=== PATIENT | male | born 1975 | race Caucasian/White ===

== ENCOUNTER 2021-11-21 07:15 | Emergency (ER) | payer BC ==
[~2021-11-21] VITALS: Ht 177.8 cm; Wt 80.7 kg
[2021-11-21 07:24] VITALS: BP 123/73
--- NOTE | 2021-11-21 07:29 | NUR ---
pt ambulated to bed 08 at this time with even and steady gait. urine cup was given
[2021-11-21] MEDS ORDERED: ONDANSETRON 4 MG ODT PO ONE (07:30)
--- NOTE | 2021-11-21 07:32 | NUR ---
DR HAM AT BEDSIDE EVALUATING PT
[2021-11-21] MEDS ORDERED: KETOROLAC 60 MG/2 ML VIAL IM ONE (07:35)
[2021-11-21] MEDS ORDERED: ONDA8TAB87 PO (07:40)
[2021-11-21] MEDS ORDERED: IBUP-2213 PO (07:40)
--- NOTE | 2021-11-21 07:44 | NUR ---
ASSESSED PATIENT'S PAIN LEVEL, MEDICATED PER ORDERS.
--- NOTE | 2021-11-21 07:46 | NUR ---
46 y/o male bib spouse from home, c/o abd pain with chills and n&v for 2 days. states he is having a cramping sensation and is unable to hold down medication and food. denies anyone sick in household with same symptoms. denies dysuria, hematuria, urinary frequency or retention. lung bases clear, heart sounds even and normal. respirations even and unlabored. pt is a&ox4 b[place]ian speaking, ambulates with even and steady gait. pmh: denies nka med: tylenol 1000mg prior to arrival
[2021-11-21 08:00] VITALS: BP 123/73
--- NOTE | 2021-11-21 08:00 | NUR ---
Patient discharged with v/s stable. Written and verbal after care instructions ABOUT NAUSEA AND VOMITING, ABDOMINAL PAIN given and explained. Patient alert, oriented and verbalized understanding of instructions. Ambulatory with steady gait. All questions addressed prior to discharge. ID band removed. Patient advised to follow up with PMD. Rx of IBUPROFEN AND ZOFRAN given.
--- NOTE | 2021-11-21 08:01 | NUR ---
The patient's care was reviewed and supervised by Kiara Enciso RN.
== END 2021-11-21 08:00 | disposition home or self-care (01) ==
LOC: MED 07:15
DX: R11.2 Nausea with vomiting, unspecified (principal); R10.13 Epigastric pain; R50.9 Fever, unspecified; F17.210 Nicotine dependence, cigarettes, uncomplicated
CPT/HCPCS: 96372; 99283; J1885; Q0162

== ENCOUNTER 2022-06-30 13:53 | Inpatient (IN) | payer BC ==
[~2022-06-30] VITALS: Ht 177.8 cm; Wt 75.7 kg
[~2022-06-30 13:53] MED LIST: IBUP-2213 PO; ONDA8TAB87 PO; SEVOFLURANE 250 ML BTL INH ONE
[2022-06-30 13:57] VITALS: BP 139/87
--- NOTE | 2022-06-30 14:23 | NUR ---
Pt ambulated to bed 09.
[2022-06-30] MEDS ORDERED: ONDANSETRON 4 MG/2 ML VIAL IVP ONE (14:40)
[2022-06-30] MEDS ORDERED: KETOROLAC 30 MG/ML VIAL IVP ONE (14:40)
--- NOTE | 2022-06-30 15:13 | NUR ---
PT C/O LEFT SIDED ABDOMINAL PAIN X3 DAYS.
[2022-06-30 15:47] LABS: BASOPHILS % (AUTO) 0.1 % (0.0-2.0); EOSINOPHILS # (AUTO) 0.1 K/uL (0-0.4); EOSINOPHILS % (AUTO) 0.4 % (0.0-4.0); HEMATOCRIT 43.1 % (36-52); HEMOGLOBIN 14.9 g/dL (12.0-18.0); LYMPHOCYTES # (AUTO) 1.6 K/uL (2.0-11.5); LYMPHOCYTES % (AUTO) 7.5 % (20.5-51.1); MEAN CORPUSCULAR HEMOGLOBIN 32 pg (27-31); MEAN CORPUSCULAR HGB CONC 35 g/dL (33-37); MEAN CORPUSCULAR VOLUME 91.6 fL (80-94); MONOCYTES % (AUTO) 9.6 % (1.7-9.3); NEUTROPHILS # (AUTO) 17.3 K/uL (1.8-7.7); NEUTROPHILS % (AUTO) 82.4 % (42.2-75.2); PLATELET COUNT (AUTO) 168 K/uL (140-450); RED BLOOD CELL COUNT(AUTO) 4.71 MIL/uL (4.20-6.10); RED CELL DISTRIBUTION WIDTH 13.2 % (11.6-13.7)
[2022-06-30 16:04] LABS: ALBUMIN 3.4 g/dL (3.4-5.0); ANION GAP 15.7 (8-16); CARBON DIOXIDE 23.1 mmol/L (21-32); CREATININE 0.8 mg/dL (0.6-1.3); POTASSIUM 3.8 mmol/L (3.5-5.1); TOTAL BILIRUBIN 1.2 mg/dL (0.0-1.0)
[2022-06-30] MEDS ORDERED: MORPHINE SULFATE 2 MG/ML SYR IVP PRN (20:00)
[2022-06-30] MEDS ORDERED: HYDROcodone/APAP 5/325 MG 1 TAB TAB PO PRN (20:00)
[2022-06-30] MEDS ORDERED: ONDANSETRON 4 MG/2 ML VIAL IV PRN (20:00)
[2022-06-30] MEDS: DEXT 5% / NACL 0.45% 1,000 ML IV SCH (20:00)
[2022-06-30] MEDS ORDERED: HYDROmorphone 1 MG/ML AMP IVP PRN (20:00)
[2022-06-30] MEDS ORDERED: MORPHINE SULFATE 4 MG/ML SYR IV PRN (20:00)
--- NOTE | 2022-06-30 20:39 | NUR ---
NO WOUNDS PER BODY CHECK
[2022-06-30] MEDS ORDERED: PIPERACILLIN/TAZOBACTAM 4.5 GM VIAL IV ONE (21:18)
[2022-06-30] MEDS ORDERED: POTASSIUM CHLORIDE 10 MEQ TABER PO PRN (21:20)
[2022-06-30] MEDS ORDERED: HYDROcodone/APAP 7.5/325 MG 1 TAB PO PRN (21:20)
[2022-06-30] MEDS ORDERED: NACL 0.9% 1,000 ML IV SCH (21:20)
[2022-06-30] MEDS ORDERED: DOCUSATE SODIUM 100 MG GELCAP PO PRN (21:20)
[2022-06-30] MEDS ORDERED: ONDANSETRON 4 MG/2 ML VIAL IM/IVP PRN (21:20)
[2022-06-30] MEDS ORDERED: guaiFENesin DM 200/20 MG-10 ML 10 ML UDC PO PRN (21:20)
[2022-06-30] MEDS ORDERED: ZOLPIDEM 5 MG TAB PO PRN (21:20)
[2022-06-30] MEDS ORDERED: ACETAMINOPHEN 325 MG TAB PO PRN (21:20)
[2022-06-30] MEDS: PIPERACILLIN/TAZOBACTAM 4.5 GM in DEXTROSE 5% 100 ML IV SCH (21:40)
[2022-06-30 22:05] LABS: CHOL/HDL RATIO 4.5 (1-4.5); PHOSPHORUS 2.8 mg/dL (2.5-4.9); THYROID STIMULATING HORMONE 1.32 uIU/mL (0.34-3.74)
--- NOTE | 2022-06-30 22:54 | NUR ---
PT MOVED TO BED 6
--- NOTE | 2022-06-30 23:00 | NUR ---
HANDOFF RECIEVED FROM NILDA BERUMEN. ASSUMED CARE AT THIS TIME. PT SEEN WITH EYES CLOSED, VISIBLE CHEST RISE AND FALL NOTED. D51/2NS RUNNING AT 100CC/HR. ALL NEEDS MET AT THIS TIME.
--- NOTE | 2022-07-01 03:03 | NUR ---
PT AMBULATED TO RESTROOM UNASSISTED. URINE SPECIMEN COLLECTED
[2022-07-01] MEDS: MORPHINE SULFATE 2 MG/ML SYR IVP PRN ×2 (03:12→22:35)
--- NOTE | 2022-07-01 03:13 | NUR ---
PT HAS C/O 6/10 SHARP ABDOMINAL PAIN. MORPHINE 2MG IVP ADMINISTERED PER ORDER
[2022-07-01 03:56] LABS: APPEARANCE,URINE CLEAR (CLEAR); BILIRUBIN,URINE 1+ (NEGATIVE); BLOOD, URINE TRACE-I (NEGATIVE); COLOR,URINE YELLOW (YELLOW); LEUKOCYTE ESTERASE ,URINE NEGATIVE (NEGATIVE); NITRITE, URINE POSITIVE (NEGATIVE); UGLUCOSE TRACE (NEGATIVE)
--- NOTE | 2022-07-01 04:00 | NUR ---
PT REPORTS DECREASED PAIN OF 2/10, TOLERABLE FOR PT.
[2022-07-01 04:25] LABS: RBC,URINE 11-20 (MOD) /HPF (0-5)
[2022-07-01 04:27] LABS: BARBITURATE, URINE NEGATIVE ng/ml (NEG <=200); BENZODIAZEPINE, URINE NEGATIVE ng/mL (NEG <=200); CANNABINOID, URINE NEGATIVE ng/mL (NEG <=50); COCAINE, URINE NEGATIVE ng/mL (NEG <=300); OPIATE, URINE POSITIVE ng/mL (NEG <=2000); PHENCYCLIDINE SCREEN,URINE NEGATIVE ng/mL (NEG <=25)
[2022-07-01] MEDS ORDERED: PIPERACILLIN/TAZOBACTAM 4.5 GM VIAL IV ONE (05:07)
[2022-07-01] MEDS: PIPERACILLIN/TAZOBACTAM 4.5 GM in DEXTROSE 5% 100 ML IV SCH ×3 (05:15→21:00)
[2022-07-01] MEDS: DEXT 5% / NACL 0.45% 1,000 ML IV SCH ×2 (06:00→23:15)
--- NOTE | 2022-07-01 07:12 | NUR ---
HANDOFF REPORT GIVEN TO YASSINE FRANZ. TX OF CARE AT THIS TIME.
--- NOTE | 2022-07-01 07:14 | NUR ---
REPORT RECEIVED FROM RACHEL MUNGUIA. ASSUMED CARE AT THIS TIME
--- NOTE | 2022-07-01 07:30 | NUR ---
pt at rest, laying l side recubant. no visible distress. respirations even and unlabored.
[2022-07-01 07:36] LABS: BASOPHILS % (AUTO) 0.2 % (0.0-2.0); EOSINOPHILS # (AUTO) 0.3 K/uL (0-0.4); HEMATOCRIT 41.1 % (36-52); LYMPHOCYTES # (AUTO) 1.8 K/uL (2.0-11.5); LYMPHOCYTES % (AUTO) 11.5 % (20.5-51.1); MEAN CORPUSCULAR HEMOGLOBIN 32 pg (27-31); MEAN CORPUSCULAR HGB CONC 34 g/dL (33-37); MEAN CORPUSCULAR VOLUME 92.5 fL (80-94); MONOCYTES # (AUTO) 1.8 K/uL (0.8-1.0); MONOCYTES % (AUTO) 11.2 % (1.7-9.3); NEUTROPHILS # (AUTO) 11.7 K/uL (1.8-7.7); NEUTROPHILS % (AUTO) 75.1 % (42.2-75.2); PLATELET COUNT (AUTO) 150 K/uL (140-450); RED BLOOD CELL COUNT(AUTO) 4.44 MIL/uL (4.20-6.10); RED CELL DISTRIBUTION WIDTH 13.1 % (11.6-13.7); WHITE BLOOD COUNT (AUTO) 15.6 K/uL (4.8-10.8)
[2022-07-01 07:40] LABS: ALBUMIN 2.8 g/dL (3.4-5.0); CARBON DIOXIDE 23.9 mmol/L (21-32); CREATININE 0.9 mg/dL (0.6-1.3); POTASSIUM 3.9 mmol/L (3.5-5.1); TOTAL BILIRUBIN 2.8 mg/dL (0.0-1.0)
[2022-07-01 08:00] VITALS: BP 118/70
--- NOTE | 2022-07-01 08:08 | NUR ---
Patient will be admitted to care of MD CASTELLON. Admited to [facility]. Will go to room 119A. Belongings list completed. Report to SHANTELLE MUNGUIA.
[2022-07-01] MEDS: PANTOPRAZOLE 40 MG TABEC PO SCH (08:30)
[2022-07-01] MEDS ORDERED: HYDROmorphone 1 MG/ML AMP IVP PRN (10:25)
[2022-07-01] MEDS ORDERED: diphenhydrAMINE 50 MG/ML VIAL IVP PRN (10:25)
[2022-07-01] MEDS ORDERED: MEPERIDINE 25 MG/ML SYR IVP PRN (10:25)
[2022-07-01] MEDS ORDERED: LACTATED RINGERS 1,000 ML IV SCH (10:25)
[2022-07-01] MEDS ORDERED: ONDANSETRON 4 MG/2 ML VIAL IVP PRN (10:25)
[2022-07-01] MEDS ORDERED: fentaNYL citrate 0.05 MG/ML VIAL ONE (10:29)
[2022-07-01] MEDS ORDERED: BUPIVACAINE-MPF 0.25% 30 ML VIAL INJ ONE (10:29)
[2022-07-01] MEDS ORDERED: LIDOCAINE/EPI MPF 1%1:200000 30 ML VIAL INJ ONE (10:29)
[2022-07-01] MEDS ORDERED: PROPOFOL 200 MG/20 ML VIAL IV ONE (10:31)
[2022-07-01] MEDS ORDERED: SUCCINYLCHOLINE CHLORIDE 200 MG/10 ML VIAL IVP ONE (10:32)
[2022-07-01] MEDS ORDERED: ROCURONIUM 50 MG/5 ML VIAL IV ONE ×2 (10:49→12:06)
[2022-07-01] MEDS ORDERED: ONDANSETRON 4 MG/2 ML VIAL ONE (10:50)
[2022-07-01] MEDS ORDERED: ceFAZolin 1,000 MG VIAL ONE ×2 (11:13)
[2022-07-01 12:00] VITALS: BP 146/86
[2022-07-01] MEDS ORDERED: SUGAMMADEX SODIUM 200 MG/2 ML VIAL IV ONE (12:10)
[2022-07-01] MEDS ORDERED: MEPERIDINE 25 MG/ML SYR ONE (12:17)
[2022-07-01 16:00] VITALS: BP 142/80
[2022-07-02] VITALS: BP 115/70
--- NOTE | 2022-07-02 03:46 | NUR ---
PATIENT AWAKE ALERT HAS SMALL DRSG INTACT HAS X1 J.P. 40CC OUT FROM DAY SHIFT. TEMP 98 LUNGS DIMINISH C/O OF PAIN IN ABDOMEN MEDICATED WITH MORPHINE 2 MG IVP PATIENT GIVEN ZOSYN 4.5 GM 2100 AND WILL GET AGAIN AT 0500. IVF INFUSING D51/2NS 100 HOUR.
[2022-07-02 04:00] VITALS: BP 117/69
[2022-07-02] MEDS: DEXT 5% / NACL 0.45% 1,000 ML IV SCH ×2 (04:15→12:00)
[2022-07-02] MEDS: PIPERACILLIN/TAZOBACTAM 4.5 GM in DEXTROSE 5% 100 ML IV SCH ×2 (05:05→13:05)
[2022-07-02] MEDS: MORPHINE SULFATE 2 MG/ML SYR IVP PRN ×2 (05:35→09:43)
[2022-07-02 06:31] LABS: BASOPHILS % (AUTO) 0.1 % (0.0-2.0); EOSINOPHILS # (AUTO) 0.2 K/uL (0-0.4); EOSINOPHILS % (AUTO) 1.8 % (0.0-4.0); HEMATOCRIT 36.6 % (36-52); HEMOGLOBIN 12.5 g/dL (12.0-18.0); LYMPHOCYTES # (AUTO) 2.1 K/uL (2.0-11.5); LYMPHOCYTES % (AUTO) 15.7 % (20.5-51.1); MEAN CORPUSCULAR HEMOGLOBIN 31 pg (27-31); MEAN CORPUSCULAR HGB CONC 34 g/dL (33-37); MONOCYTES # (AUTO) 1.6 K/uL (0.8-1.0); MONOCYTES % (AUTO) 11.8 % (1.7-9.3); NEUTROPHILS # (AUTO) 9.4 K/uL (1.8-7.7); NEUTROPHILS % (AUTO) 70.6 % (42.2-75.2); PLATELET COUNT (AUTO) 175 K/uL (140-450); RED BLOOD CELL COUNT(AUTO) 3.97 MIL/uL (4.20-6.10); RED CELL DISTRIBUTION WIDTH 12.9 % (11.6-13.7); WHITE BLOOD COUNT (AUTO) 13.4 K/uL (4.8-10.8)
[2022-07-02 06:56] LABS: ALBUMIN 2.5 g/dL (3.4-5.0); ANION GAP 11.9 (8-16); CREATININE 0.7 mg/dL (0.6-1.3); POTASSIUM 3.9 mmol/L (3.5-5.1); TOTAL BILIRUBIN 1.2 mg/dL (0.0-1.0)
[2022-07-02 08:00] VITALS: BP 103/65
--- NOTE | 2022-07-02 08:58 | NUR ---
PATIENT HAS BEEN SCREENED AND CATEGORIZED LOW NUTRITION RISK. PATIENT WILL BE SEEN WITHIN 7 DAYS OF ADMISSION. 07/07/22 REVIEWED BY SANCHO MCGEE [address]
[2022-07-02] MEDS: PANTOPRAZOLE 40 MG TABEC PO SCH (09:09)
[2022-07-02] MEDS ORDERED: AMOX-999 PO (10:27)
[2022-07-02] MEDS ORDERED: ACET-8386 PO (10:27)
== END 2022-07-02 16:40 | disposition home or self-care (01) | DRG 853 ==
LOC: MED 13:53 → MMU 20:32 → MTU 07-01 05:23
PROVIDERS: ADMIT Student in an Organized Health Care Education/Training Program; ATTEND Student in an Organized Health Care Education/Training Program
PROC: 0F9440Z Drainage of Gallbladder with Drainage Device, Percutaneous Endoscopic Approach (ICD-10-PCS; 2022-07-01)
PROC: BF121ZZ Fluoroscopy of Gallbladder using Low Osmolar Contrast (ICD-10-PCS; 2022-07-01)
PROC: 0FT44ZZ Resection of Gallbladder, Percutaneous Endoscopic Approach (ICD-10-PCS; principal; 2022-07-01 10:20)
DX: A41.9 Sepsis, unspecified organism (principal); K65.3 Choleperitonitis; N39.0 Urinary tract infection, site not specified; E87.1 Hypo-osmolality and hyponatremia; K80.12 Calculus of gallbladder with acute and chronic cholecystitis without obstruction; K82.A1 Gangrene of gallbladder in cholecystitis; F17.210 Nicotine dependence, cigarettes, uncomplicated; E80.6 Other disorders of bilirubin metabolism; E78.5 Hyperlipidemia, unspecified; Z20.822 Contact with and (suspected) exposure to COVID-19; Z79.899 Other long term (current) drug therapy; Z79.1 Long term (current) use of non-steroidal anti-inflammatories (NSAID)
CPT/HCPCS: 36415; 71045; 76705; 80053; 80305; 81001; 82374; 83036; 83690; 83880; 84100; 84443; 85025; 86886; 86900; 86901; 87040; 87086; 93005; 96374; 96375; 99285; C1887; J0330; J0690; J1885; J2001; J2175; J2270; J2405; J2543; J2704; J3010; J3490; J7030; J7060; Q0092

== ENCOUNTER 2023-12-02 16:06 | Inpatient (IN) | payer BC ==
[~2023-12-02] VITALS: Ht 177.8 cm; Wt 77.1 kg
[~2023-12-02 16:06] MED LIST changes: +ACET-8905 PO; +AMOX-999 PO; -SEVOFLURANE 250 ML BTL INH ONE
[2023-12-02 16:12] VITALS: BP 134/76; PULSE 109; RESP 18; TEMP 96.6; O2SAT 97
[2023-12-02 16:56] LABS: BASOPHILS % (AUTO) 0.4 % (0.0-2.0); EOSINOPHILS # (AUTO) 0.2 K/uL (0-0.4); EOSINOPHILS % (AUTO) 2.1 % (0.0-4.0); HEMATOCRIT 39.5 % (36-52); HEMOGLOBIN 13.9 g/dL (12.0-18.0); LYMPHOCYTES # (AUTO) 1.9 K/uL (2.0-11.5); LYMPHOCYTES % (AUTO) 15.9 % (20.5-51.1); MEAN CORPUSCULAR HEMOGLOBIN 34 pg (27-31); MEAN CORPUSCULAR HGB CONC 35 g/dL (33-37); MONOCYTES % (AUTO) 8.5 % (1.7-9.3); NEUTROPHILS # (AUTO) 8.5 K/uL (1.8-7.7); NEUTROPHILS % (AUTO) 73.1 % (42.2-75.2); PLATELET COUNT (AUTO) 181 K/uL (140-450); RED BLOOD CELL COUNT(AUTO) 4.07 MIL/uL (4.20-6.10); RED CELL DISTRIBUTION WIDTH 14.6 % (11.6-13.7); WHITE BLOOD COUNT (AUTO) 11.7 K/uL (4.8-10.8)
[2023-12-02 17:08] LABS: ANION GAP 14.9 (8-16); CALCIUM 8.7 mg/dL (8.5-10.1); CREATININE 0.7 mg/dL (0.6-1.3); POTASSIUM 3.9 mmol/L (3.5-5.1)
[2023-12-02 17:09] LABS: INR 0.9 (0.8-1.2); PROTHROMBIN TIME 9.5 secs (10.8-13.4)
[2023-12-02 17:37] LABS: ALBUMIN 2.6 g/dL (3.4-5.0); BILIRUBIN,DIRECT 5.2 mg/dL (0.0-0.3); TOTAL BILIRUBIN 5.7 mg/dL (0.0-1.0)
[2023-12-02] MEDS ORDERED: ATA25 PO (22:17)
[2023-12-03] MEDS ORDERED: ONDANSETRON 4 MG/2 ML VIAL IVP PRN (01:00)
[2023-12-03] MEDS ORDERED: MAG SULF 2000 MG/WATER PREMIX 50 ML IV PRN (01:00)
[2023-12-03] MEDS ORDERED: MORPHINE SULFATE 4 MG/ML SYR IVP PRN (01:00)
[2023-12-03] MEDS ORDERED: KCL 20 MEQ IN 100 mL PREMIX 200 ML IV PRN (01:00)
[2023-12-03] MEDS ORDERED: POTASSIUM CHLORIDE 10 MEQ TABER PO PRN (01:00)
[2023-12-03] MEDS ORDERED: HYDROcodone/APAP 5/325 MG 1 TAB TAB PO PRN (01:00)
[2023-12-03 01:27] VITALS: O2SAT 96
[2023-12-03 01:40] VITALS: PULSE 71; RESP 18; O2SAT 96
[2023-12-03] MEDS: NACL 0.9% 1,000 ML IV SCH (02:45)
[2023-12-03 04:00] VITALS: BP 96/60; PULSE 71; RESP 18; TEMP 98; O2SAT 96
[2023-12-03 08:00] VITALS: BP 100/59; PULSE 69; RESP 18; TEMP 98.2; O2SAT 97
[2023-12-03 16:00] VITALS: BP 100/59; PULSE 64; RESP 16; TEMP 97.5; O2SAT 100
[2023-12-03 20:00] VITALS: PULSE 72; RESP 16; O2SAT 96
[2023-12-04 04:00] VITALS: BP 92/65; PULSE 71; RESP 18; TEMP 97.5; O2SAT 95
[2023-12-04 06:53] LABS: BASOPHILS # (AUTO) 0.1 K/uL (0.00-0.22); BASOPHILS % (AUTO) 0.8 % (0.0-2.0); EOSINOPHILS # (AUTO) 0.4 K/uL (0-0.4); EOSINOPHILS % (AUTO) 3.2 % (0.0-4.0); HEMOGLOBIN 13.2 g/dL (12.0-18.0); LYMPHOCYTES # (AUTO) 2.3 K/uL (2.0-11.5); LYMPHOCYTES % (AUTO) 21.6 % (20.5-51.1); MEAN CORPUSCULAR HEMOGLOBIN 34 pg (27-31); MEAN CORPUSCULAR HGB CONC 35 g/dL (33-37); MONOCYTES % (AUTO) 9.3 % (1.7-9.3); NEUTROPHILS % (AUTO) 65.1 % (42.2-75.2); PLATELET COUNT (AUTO) 163 K/uL (140-450); RED BLOOD CELL COUNT(AUTO) 3.92 MIL/uL (4.20-6.10); RED CELL DISTRIBUTION WIDTH 14.8 % (11.6-13.7); WHITE BLOOD COUNT (AUTO) 10.8 K/uL (4.8-10.8)
[2023-12-04 08:00] VITALS: BP 99/59; PULSE 65; PULSE 67; RESP 18; TEMP 97.4; O2SAT 97; O2SAT 99
[2023-12-04 08:39] LABS: ALBUMIN 2.2 g/dL (3.4-5.0); ANION GAP 12.3 (8-16); CALCIUM 8.8 mg/dL (8.5-10.1); CARBON DIOXIDE 27.1 mmol/L (21-32); CREATININE 0.7 mg/dL (0.6-1.3); MAGNESIUM 1.7 mg/dL (1.8-2.4); POTASSIUM 4.4 mmol/L (3.5-5.1); TOTAL BILIRUBIN 6.4 mg/dL (0.0-1.0); TOTAL PROTEIN, SERUM 7.1 g/dL (6.4-8.2)
[2023-12-04 09:06] LABS: LACTATE DEHYDROGENASE 198 IU/L (121-224)
[2023-12-04] MEDS: MIDAZOLAM 2 MG/2 ML VIAL ONE (10:03)
[2023-12-04] MEDS: fentaNYL citrate 0.05 MG/ML VIAL ONE (10:03)
[2023-12-04] MEDS ORDERED: ONDANSETRON 4 MG/2 ML VIAL IVP PRN (10:45)
[2023-12-04 15:07] LABS: HEPATITIS A ANTIBODY IGM Negative (Negative); HEPATITIS B CORE AB TOTAL Negative (Negative); HEPATITIS B CORE, IGM Negative (Negative); HEPATITIS B SURFACE ANTIBODY Non Reactive (.); HEPATITIS B SURFACE ANTIGEN Negative (Negative); HEPATITIS C VIRUS ANTIBODY Non Reactive (Non Reactive)
[2023-12-04 16:00] VITALS: BP 109/60; PULSE 111; RESP 18; TEMP 102; O2SAT 95
[2023-12-04] MEDS: MAGNESIUM OXIDE 400 MG TAB PO PRN (16:03)
[2023-12-04] MEDS: ACETAMINOPHEN 325 MG TAB PO PRN (16:03)
[2023-12-04 20:00] VITALS: BP 107/61; PULSE 88; RESP 18; TEMP 98.7; O2SAT 97
[2023-12-04] MEDS: PROPOFOL 200 MG/20 ML VIAL IV ONE (20:00)
[2023-12-04 21:23] LABS: HEPATITIS A ANTIBODY TOTAL Positive (Negative)
[2023-12-05 04:00] VITALS: BP 105/62; PULSE 86; RESP 18; TEMP 98.1; O2SAT 97
[2023-12-05 07:07] LABS: BASOPHILS # (AUTO) 0.1 K/uL (0.00-0.22); BASOPHILS % (AUTO) 0.3 % (0.0-2.0); EOSINOPHILS # (AUTO) 0.1 K/uL (0-0.4); EOSINOPHILS % (AUTO) 0.9 % (0.0-4.0); HEMATOCRIT 36.6 % (36-52); HEMOGLOBIN 12.7 g/dL (12.0-18.0); LYMPHOCYTES # (AUTO) 1.5 K/uL (2.0-11.5); LYMPHOCYTES % (AUTO) 9.3 % (20.5-51.1); MEAN CORPUSCULAR HEMOGLOBIN 34 pg (27-31); MEAN CORPUSCULAR HGB CONC 35 g/dL (33-37); MEAN CORPUSCULAR VOLUME 96.9 fL (80-94); MONOCYTES # (AUTO) 1.1 K/uL (0.8-1.0); MONOCYTES % (AUTO) 6.9 % (1.7-9.3); NEUTROPHILS # (AUTO) 13.3 K/uL (1.8-7.7); NEUTROPHILS % (AUTO) 82.6 % (42.2-75.2); PLATELET COUNT (AUTO) 150 K/uL (140-450); RED BLOOD CELL COUNT(AUTO) 3.78 MIL/uL (4.20-6.10); RED CELL DISTRIBUTION WIDTH 14.5 % (11.6-13.7); WHITE BLOOD COUNT (AUTO) 16.1 K/uL (4.8-10.8)
[2023-12-05 07:37] LABS: ALBUMIN 2.1 g/dL (3.4-5.0); ANION GAP 14.3 (8-16); CALCIUM 8.5 mg/dL (8.5-10.1); CARBON DIOXIDE 21.7 mmol/L (21-32); CREATININE 0.7 mg/dL (0.6-1.3); MAGNESIUM 1.7 mg/dL (1.8-2.4); TOTAL BILIRUBIN 7.8 mg/dL (0.0-1.0); TOTAL PROTEIN, SERUM 6.8 g/dL (6.4-8.2)
[2023-12-05 08:00] VITALS: BP 107/60; PULSE 72; PULSE 75; RESP 17; RESP 18; TEMP 98.2; O2SAT 98
[2023-12-05] MEDS: PIPERACILLIN/TAZOBACTAM 3.375 GM in DEXTROSE 5% 50 ML IV SCH (13:48)
[2023-12-05 16:00] VITALS: BP 111/63; PULSE 88; RESP 18; TEMP 99.2; O2SAT 98
[2023-12-05 20:00] VITALS: BP 111/68; PULSE 96; RESP 18; TEMP 99; O2SAT 94
[2023-12-06 06:49] LABS: BASOPHILS % (AUTO) 0.4 % (0.0-2.0); EOSINOPHILS # (AUTO) 0.3 K/uL (0-0.4); EOSINOPHILS % (AUTO) 3.1 % (0.0-4.0); HEMATOCRIT 35.1 % (36-52); HEMOGLOBIN 12.4 g/dL (12.0-18.0); LYMPHOCYTES # (AUTO) 1.9 K/uL (2.0-11.5); LYMPHOCYTES % (AUTO) 18.3 % (20.5-51.1); MEAN CORPUSCULAR HEMOGLOBIN 34 pg (27-31); MEAN CORPUSCULAR HGB CONC 35 g/dL (33-37); MEAN CORPUSCULAR VOLUME 96.2 fL (80-94); MONOCYTES # (AUTO) 1.1 K/uL (0.8-1.0); MONOCYTES % (AUTO) 10.7 % (1.7-9.3); NEUTROPHILS % (AUTO) 67.5 % (42.2-75.2); PLATELET COUNT (AUTO) 136 K/uL (140-450); RED BLOOD CELL COUNT(AUTO) 3.65 MIL/uL (4.20-6.10); RED CELL DISTRIBUTION WIDTH 14.7 % (11.6-13.7); WHITE BLOOD COUNT (AUTO) 10.4 K/uL (4.8-10.8)
[2023-12-06 07:18] LABS: ANION GAP 11.3 (8-16); CALCIUM 8.1 mg/dL (8.5-10.1); CARBON DIOXIDE 23.3 mmol/L (21-32); CREATININE 0.7 mg/dL (0.6-1.3); MAGNESIUM 1.7 mg/dL (1.8-2.4); POTASSIUM 3.6 mmol/L (3.5-5.1); TOTAL BILIRUBIN 5.1 mg/dL (0.0-1.0); TOTAL PROTEIN, SERUM 6.8 g/dL (6.4-8.2)
[2023-12-06 08:00] VITALS: BP 116/81; PULSE 84; RESP 16; TEMP 97.4; O2SAT 97
[2023-12-06] MEDS: ENOXAPARIN 40 MG/0.4 ML SYR SUBQ SCH (08:25)
[2023-12-06 09:13] VITALS: PULSE 84; RESP 16; O2SAT 97
[2023-12-06 16:00] VITALS: BP 105/67; PULSE 75; RESP 16; TEMP 98.3; O2SAT 98
[2023-12-06 16:06] LABS: LD1 FRACTION 17 % (17-32); LD2 FRACTION 34 % (25-40); LD3 FRACTION 21 % (17-27); LD4 FRACTION 7 % (5-13)
[2023-12-06 20:00] VITALS: PULSE 77; RESP 18; O2SAT 97
[2023-12-07] VITALS: BP 108/65; PULSE 77; RESP 18; TEMP 97.6; O2SAT 97
[2023-12-07 07:20] LABS: BASOPHILS # (AUTO) 0.1 K/uL (0.00-0.22); BASOPHILS % (AUTO) 0.7 % (0.0-2.0); EOSINOPHILS # (AUTO) 0.4 K/uL (0-0.4); EOSINOPHILS % (AUTO) 5.1 % (0.0-4.0); HEMATOCRIT 37.4 % (36-52); HEMOGLOBIN 12.9 g/dL (12.0-18.0); LYMPHOCYTES % (AUTO) 23.9 % (20.5-51.1); MEAN CORPUSCULAR HEMOGLOBIN 34 pg (27-31); MEAN CORPUSCULAR HGB CONC 35 g/dL (33-37); MEAN CORPUSCULAR VOLUME 97.2 fL (80-94); MONOCYTES # (AUTO) 1.1 K/uL (0.8-1.0); MONOCYTES % (AUTO) 12.7 % (1.7-9.3); NEUTROPHILS # (AUTO) 4.8 K/uL (1.8-7.7); NEUTROPHILS % (AUTO) 57.6 % (42.2-75.2); PLATELET COUNT (AUTO) 147 K/uL (140-450); RED BLOOD CELL COUNT(AUTO) 3.85 MIL/uL (4.20-6.10); RED CELL DISTRIBUTION WIDTH 14.2 % (11.6-13.7); WHITE BLOOD COUNT (AUTO) 8.3 K/uL (4.8-10.8)
[2023-12-07 07:49] LABS: ALBUMIN 2.1 g/dL (3.4-5.0); ANION GAP 11.3 (8-16); CALCIUM 8.4 mg/dL (8.5-10.1); CARBON DIOXIDE 24.8 mmol/L (21-32); CREATININE 0.7 mg/dL (0.6-1.3); MAGNESIUM 1.9 mg/dL (1.8-2.4); POTASSIUM 4.1 mmol/L (3.5-5.1); TOTAL BILIRUBIN 4.3 mg/dL (0.0-1.0); TOTAL PROTEIN, SERUM 7.3 g/dL (6.4-8.2)
[2023-12-07 08:00] VITALS: BP 105/63; PULSE 63; RESP 17; TEMP 97; O2SAT 96
[2023-12-07 15:33] VITALS: BP 105/63; PULSE 63; RESP 18; TEMP 97
== END 2023-12-07 16:30 | disposition home or self-care (01) | DRG 872 ==
LOC: MED 16:06 → MMU 12-03 00:59 → MTU 12-03 01:15
PROVIDERS: ADMIT Hospitalist; ATTEND Hospitalist
PROC: 0FPB8DZ Removal of Intraluminal Device from Hepatobiliary Duct, Via Natural or Artificial Opening Endoscopic (ICD-10-PCS; principal; 2023-12-05)
PROC: 0FC98ZZ Extirpation of Matter from Common Bile Duct, Via Natural or Artificial Opening Endoscopic (ICD-10-PCS; 2023-12-05)
PROC: 0F798ZZ Dilation of Common Bile Duct, Via Natural or Artificial Opening Endoscopic (ICD-10-PCS; 2023-12-05)
PROC: BF131ZZ Fluoroscopy of Gallbladder and Bile Ducts using Low Osmolar Contrast (ICD-10-PCS; 2023-12-05)
DX: A41.9 Sepsis, unspecified organism (principal); K80.31 Calculus of bile duct with cholangitis, unspecified, with obstruction; E80.6 Other disorders of bilirubin metabolism; F17.210 Nicotine dependence, cigarettes, uncomplicated; K31.89 Other diseases of stomach and duodenum; Z90.49 Acquired absence of other specified parts of digestive tract
CPT/HCPCS: 36415; 71045; 74330; 76700; 80048; 80053; 80076; 83625; 83690; 83735; 85025; 85045; 85610; 86704; 86706; 86708; 86709; 86803; 87040; 87081; 87340; 93005; 99285; C1769; C1773; J1650; J2250; J2543; J2704; J3010; J7060; Q0092; Q9967

== ENCOUNTER 2024-04-09 22:01 | Emergency (ER) | payer BC ==
[~2024-04-09] VITALS: Ht 177.8 cm; Wt 76.7 kg
[~2024-04-09 22:01] MED LIST changes: -ACET-8905 PO; -AMOX-999 PO; +ATA25 PO; -IBUP-2213 PO; -ONDA8TAB87 PO
[2024-04-09 22:25] VITALS: BP 157/91; PULSE 110; RESP 16; TEMP 98.6; O2SAT 99
[2024-04-09 23:02] LABS: HEMATOCRIT 45.8 % (36-52); HEMOGLOBIN 15.7 g/dL (12.0-18.0); MEAN CORPUSCULAR HEMOGLOBIN 32 pg (27-31); MEAN CORPUSCULAR HGB CONC 34 g/dL (33-37); MEAN CORPUSCULAR VOLUME 93.1 fL (80-94); PLATELET COUNT (AUTO) 161 K/uL (140-450); RED BLOOD CELL COUNT(AUTO) 4.92 MIL/uL (4.20-6.10); RED CELL DISTRIBUTION WIDTH 13.6 % (11.6-13.7); WHITE BLOOD COUNT (AUTO) 24.3 K/uL (4.8-10.8)
[2024-04-09 23:16] LABS: ANION GAP 17.7 (8-16); CALCIUM 8.8 mg/dL (8.5-10.1); CARBON DIOXIDE 17.8 mmol/L (21-32); CREATININE 0.9 mg/dL (0.6-1.3); LYMPHOCYTES % (MANUAL) 1 % (20-46); MONOCYTES % (MANUAL) 3 % (5-12); POTASSIUM 3.5 mmol/L (3.5-5.1)
[2024-04-09 23:23] LABS: ALANINE AMINOTRANSFERASE 235 U/L (12-78); ALBUMIN 3.5 g/dL (3.4-5.0); ALKALINE PHOSPHATASE 625 U/L (50-136); ASPARTATE AMINOTRANSFERASE 170 U/L (15-37); BILIRUBIN,DIRECT 7.2 mg/dL (0.0-0.3); LIPASE 26 U/L (16-77); TOTAL BILIRUBIN 8.6 mg/dL (0.0-1.0); TOTAL PROTEIN, SERUM 7.5 g/dL (6.4-8.2)
[2024-04-09] MEDS: ONDANSETRON 4 MG ODT PO ONE (23:47)
[2024-04-09] MEDS: ALUMINUM HYD/MAG/SIMETHICONE 30 ML UDC PO ONE (23:47)
[2024-04-10] MEDS: NACL 0.9% 1,000 ML IV ONE (01:01)
[2024-04-10] MEDS: MORPHINE SULFATE 4 MG/ML SYR IVP ONE (01:01)
[2024-04-10 01:57] VITALS: BP 95/47; PULSE 80; RESP 17
[2024-04-10 02:16] VITALS: O2SAT 96
[2024-04-10 02:48] VITALS: O2SAT 96
[2024-04-10] MEDS ORDERED: FAMO-90 PO (02:55)
[2024-04-10] MEDS ORDERED: ONDA-188 SL (02:55)
== END 2024-04-10 03:02 | disposition home or self-care (01) ==
LOC: MED 22:01
DX: A05.9 Bacterial foodborne intoxication, unspecified (principal); R79.89 Other specified abnormal findings of blood chemistry; E80.6 Other disorders of bilirubin metabolism; E11.9 Type 2 diabetes mellitus without complications; Z79.4 Long term (current) use of insulin; Z79.899 Other long term (current) drug therapy; Z90.49 Acquired absence of other specified parts of digestive tract
CPT/HCPCS: 36415; 71045; 74177; 76705; 80048; 80076; 83690; 84484; 85025; 96361; 96374; 99285; J2270; Q0092; Q0162; Q9967; 93005

== ENCOUNTER 2024-04-10 18:53 | Observation (INO) | payer BC ==
[~2024-04-10] VITALS: Ht 177.8 cm; Wt 77.1 kg
[~2024-04-10 18:53] MED LIST changes: +FAMO-90 PO; +ONDA-188 SL
[2024-04-10 19:18] VITALS: BP 106/64; PULSE 86; RESP 18; TEMP 97.8; O2SAT 96
[2024-04-10] MEDS: MORPHINE SULFATE 4 MG/ML SYR IVP ONE (21:57)
[2024-04-10 22:34] LABS: BASOPHILS % (AUTO) 0.1 % (0.0-2.0); EOSINOPHILS % (AUTO) 0.2 % (0.0-4.0); HEMATOCRIT 42.6 % (36-52); HEMOGLOBIN 14.4 g/dL (12.0-18.0); LYMPHOCYTES # (AUTO) 0.8 K/uL (2.0-11.5); LYMPHOCYTES % (AUTO) 4.4 % (20.5-51.1); MEAN CORPUSCULAR HEMOGLOBIN 32 pg (27-31); MEAN CORPUSCULAR HGB CONC 34 g/dL (33-37); MEAN CORPUSCULAR VOLUME 93.9 fL (80-94); MONOCYTES # (AUTO) 1.4 K/uL (0.8-1.0); NEUTROPHILS # (AUTO) 15.2 K/uL (1.8-7.7); PLATELET COUNT (AUTO) 125 K/uL (140-450); RED BLOOD CELL COUNT(AUTO) 4.54 MIL/uL (4.20-6.10); RED CELL DISTRIBUTION WIDTH 13.1 % (11.6-13.7); WHITE BLOOD COUNT (AUTO) 17.4 K/uL (4.8-10.8)
[2024-04-10] MEDS: NACL 0.9% 1,000 ML IV ONE (22:34)
[2024-04-10 22:59] LABS: ANION GAP 15.5 (8-16); CALCIUM 8.7 mg/dL (8.5-10.1); CARBON DIOXIDE 23.5 mmol/L (21-32); CREATININE 0.7 mg/dL (0.6-1.3)
[2024-04-10 23:05] LABS: ALBUMIN 3.1 g/dL (3.4-5.0); BILIRUBIN,DIRECT 6.1 mg/dL (0.0-0.3); NEUTROPHILS % (AUTO) 87.3 % (42.2-75.2); TOTAL BILIRUBIN 7.1 mg/dL (0.0-1.0); TOTAL PROTEIN, SERUM 7.3 g/dL (6.4-8.2)
[2024-04-11] VITALS (7 sets, daily range): BP systolic 95–106; BP diastolic 59–65; PULSE 57–76; RESP 18–20; TEMP 97.8–98.6; O2SAT 95–96
[2024-04-11] MEDS ORDERED: ONDANSETRON 4 MG/2 ML VIAL IVP PRN (01:40)
[2024-04-11] MEDS: PANTOPRAZOLE 40 MG INJ VIAL IVP SCH (08:41)
[2024-04-11 18:19] LABS: BILIRUBIN,URINE 3+ (NEGATIVE); BLOOD, URINE NEGATIVE (NEGATIVE); COLOR,URINE YELLOW (YELLOW); LEUKOCYTE ESTERASE ,URINE NEGATIVE (NEGATIVE); NITRITE, URINE NEGATIVE (NEGATIVE); PH,URINE 7.5 (5.0-9.0); PROTEIN,URINE NEGATIVE (NEGATIVE); UGLUCOSE TRACE (NEGATIVE); UROBILINOGEN,URINE 0.2 EU/dL (0.2 - 1)
[2024-04-11 18:22] LABS: APPEARANCE,URINE SLIGHTLY HAZY (CLEAR)
[2024-04-11 18:30] LABS: ICTOTEST POSITIVE (NEGATIVE)
[2024-04-12 04:00] VITALS: BP 112/62; PULSE 62; RESP 20; TEMP 97.8; O2SAT 96
[2024-04-12 05:54] LABS: BASOPHILS % (AUTO) 0.3 % (0.0-2.0); EOSINOPHILS # (AUTO) 0.3 K/uL (0-0.4); EOSINOPHILS % (AUTO) 2.7 % (0.0-4.0); HEMATOCRIT 39.7 % (36-52); HEMOGLOBIN 13.6 g/dL (12.0-18.0); LYMPHOCYTES # (AUTO) 1.9 K/uL (2.0-11.5); LYMPHOCYTES % (AUTO) 19.3 % (20.5-51.1); MEAN CORPUSCULAR HEMOGLOBIN 32 pg (27-31); MEAN CORPUSCULAR HGB CONC 34 g/dL (33-37); MEAN CORPUSCULAR VOLUME 93.5 fL (80-94); MONOCYTES % (AUTO) 10.2 % (1.7-9.3); NEUTROPHILS # (AUTO) 6.7 K/uL (1.8-7.7); NEUTROPHILS % (AUTO) 67.5 % (42.2-75.2); PLATELET COUNT (AUTO) 132 K/uL (140-450); RED BLOOD CELL COUNT(AUTO) 4.25 MIL/uL (4.20-6.10); RED CELL DISTRIBUTION WIDTH 13.6 % (11.6-13.7); WHITE BLOOD COUNT (AUTO) 9.9 K/uL (4.8-10.8)
[2024-04-12 06:36] LABS: ALBUMIN 2.6 g/dL (3.4-5.0); ANION GAP 12.3 (8-16); CARBON DIOXIDE 22.3 mmol/L (21-32); CREATININE 0.7 mg/dL (0.6-1.3); POTASSIUM 3.6 mmol/L (3.5-5.1); TOTAL BILIRUBIN 5.2 mg/dL (0.0-1.0); TOTAL PROTEIN, SERUM 6.5 g/dL (6.4-8.2)
[2024-04-12 12:00] VITALS: BP 111/62; PULSE 58; RESP 18; TEMP 97.4; O2SAT 98
[2024-04-12] MEDS: PIPERACILLIN/TAZOBACTAM 3.375 GM in DEXTROSE 5% 50 ML IV SCH (14:00)
[2024-04-12] MEDS: POTASSIUM CHLORIDE 20 MEQ in LACTATED RINGERS 1,000 ML IV SCH (14:00)
[2024-04-12 20:00] VITALS: BP 107/60; PULSE 64; RESP 19; RESP 20; TEMP 98.1; O2SAT 95
[2024-04-13] VITALS (7 sets, daily range): BP systolic 97–124; BP diastolic 58–70; PULSE 56–74; RESP 18–20; TEMP 97.4–98.8; O2SAT 64–98
[2024-04-13 06:37] LABS: ALBUMIN 2.6 g/dL (3.4-5.0); ANION GAP 14.3 (8-16); CALCIUM 8.3 mg/dL (8.5-10.1); CARBON DIOXIDE 21.8 mmol/L (21-32); CREATININE 0.7 mg/dL (0.6-1.3); POTASSIUM 4.1 mmol/L (3.5-5.1); TOTAL BILIRUBIN 3.8 mg/dL (0.0-1.0); TOTAL PROTEIN, SERUM 6.7 g/dL (6.4-8.2)
[2024-04-13] MEDS ORDERED: SEVOFLURANE 250 ML BTL INH ONE (10:00)
[2024-04-13 10:06] LABS: HEPATITIS B SURFACE ANTIBODY Non Reactive (.); HEPATITIS B SURFACE ANTIGEN Negative (Negative)
[2024-04-13] MEDS: fentaNYL citrate 0.05 MG/ML VIAL ONE (10:49)
[2024-04-13] MEDS: MIDAZOLAM 2 MG/2 ML VIAL ONE (10:49)
[2024-04-13] MEDS: ONDANSETRON 4 MG/2 ML VIAL ONE (11:08)
[2024-04-13] MEDS: PROPOFOL 200 MG/20 ML VIAL IV ONE ×2 (11:08→11:39)
[2024-04-13] MEDS: DEXAMETHASONE 4 MG/ML VIAL ONE (11:08)
[2024-04-13] MEDS: SUCCINYLCHOLINE CHLORIDE 200 MG/10 ML VIAL IVP ONE (11:09)
[2024-04-13] MEDS: ePHEDrine 50 MG/ML VIAL ONE (11:51)
[2024-04-13] MEDS: HYDROcodone/APAP 5/325 MG 1 TAB TAB PO PRN (14:01)
[2024-04-13] MEDS: MORPHINE SULFATE 2 MG/ML SYR IVP PRN (17:59)
[2024-04-14 04:00] VITALS: BP 112/60; PULSE 70; RESP 18; TEMP 97.6; O2SAT 96
[2024-04-14 08:00] VITALS: BP 92/52; PULSE 55; PULSE 68; RESP 18; RESP 20; TEMP 96.8; O2SAT 95; O2SAT 96
[2024-04-14 08:03] LABS: ALBUMIN 2.6 g/dL (3.4-5.0); CALCIUM 8.7 mg/dL (8.5-10.1); CREATININE 0.7 mg/dL (0.6-1.3); TOTAL BILIRUBIN 3.1 mg/dL (0.0-1.0); TOTAL PROTEIN, SERUM 6.7 g/dL (6.4-8.2)
[2024-04-14 09:07] LABS: HEPATITIS C AB Non Reactive (Non Reactive)
[2024-04-14] MEDS: MORPHINE SULFATE 4 MG/ML SYR IVP PRN (09:55)
[2024-04-14] MEDS ORDERED: AMOX1TER12 PO (13:53)
[2024-04-14] MEDS ORDERED: ACET-10509 PO (13:55)
[2024-04-14 15:22] VITALS: BP 100/55; PULSE 55; RESP 20; TEMP 96.8
[2024-04-14 18:41] LABS: ANTI-MITOCHONDRIAL ANTIBODY 20.2 Units (0.0 - 20.0)
[2024-04-15 15:06] LABS: ANTI-NUCLEAR ANTIBODY TITER Negative (.)
== END 2024-04-14 15:35 | disposition home or self-care (01) ==
LOC: MED 18:53 → MTU 04-11 01:42 → MMU 04-11 02:17 → MTU 04-13 19:00
PROVIDERS: ADMIT Hospitalist; ATTEND Hospitalist
DX: E80.6 Other disorders of bilirubin metabolism (principal); R74.01 Elevation of levels of liver transaminase levels; E88.89 Other specified metabolic disorders; K83.1 Obstruction of bile duct; D72.829 Elevated white blood cell count, unspecified; R11.2 Nausea with vomiting, unspecified; Z90.49 Acquired absence of other specified parts of digestive tract; Z79.899 Other long term (current) drug therapy
CPT/HCPCS: 36415; 43264; 43274; 74176; 74330; 76700; 80048; 80053; 80076; 81003; 83516; 83690; 83735; 85025; 85651; 86038; 86140; 86706; 86804; 87081; 87340; 96365; 96366; 96375; 96376; 99285; C1727; C1769; C1773; C2625; C9113; G0378; J0330; J1100; J2250; J2270; J2405; J2543; J2704; J3010; J3480; J7060; J7120; 87522